=== PATIENT | male | born 1970 | race Caucasian/White ===

== ENCOUNTER 2020-03-30 09:49 | Inpatient (IN) | payer BC ==
[~2020-03-30] VITALS: Ht 180.3 cm; Wt 57.6 kg
--- NOTE | 2020-03-30 10:05 | NUR ---
ED Nurse Note: Pt ambulated to ED from home d/t heart palpitations going on and off for a week and generalized body weakness. Pt is AOx4, calm and cooperative, VSS, HR 83 at triage. Placed on bed and gown; hooked to supervisor of guidance and testing.
--- NOTE | 2020-03-30 10:13 | Emergency Room Report ---
History of Present Illness General Chief Complaint: Palpitations Source: Patient Present Illness HPI Patient is a 49-year-old male who presents after increased palpitations. Reports having intermittent episodes which his heart begins to race. States when this happened most recently he noticed his heart rate to be 150 via watch. He reports having some increased generalized weakness as well as recent increased nasal congestion. Denies any recent vomiting or diarrhea. Denies any prior history of anemia. Denies being a smoker. Had no prior history of cardiac disease. Denies any recent stimulant use. States he is recently been started on budesonide steroid.Reports having increased nasal congestion.Patient states that episode lasted approximately 10 minutes. Allergies: Coded Allergies: No Known Allergies (Unverified , 03/30/20) COVID-19 Screening Contact w/high risk pt: No Experienced COVID-19 symptoms?: No COVID-19 Testing performed AUTOMATION DESIGN ENGINEER: No Patient History Past Medical History: see triage record Reviewed Nursing Documentation: PMH: Agreed; PSxH: Agreed Nursing Documentation-PMH Past Medical History: No Stated History Review of Systems All Other Systems: negative except mentioned in HPI Physical Exam Vital Signs Date Time Temp Pulse Resp B/P (MAP) Pulse Ox O2 Delivery O2 Flow Rate FiO2 03/30/20 09:54 98.4 83 18 123/79 (94) 98 Room Air Sp02 EP Interpretation: reviewed, normal General Appearance: normal inspection, well appearing, no apparent distress, alert, GCS 15, non-toxic Head: atraumatic ENT: normal ENT inspection, hearing grossly normal, normal voice Neck: normal inspection, supple, no bony tend Respiratory: normal inspection, lungs clear, normal breath sounds, no respiratory distress, no retraction, no wheezing Cardiovascular #1: regular rate, rhythm, no edema Gastrointestinal: normal inspection, normal bowel sounds, non tender, soft, no guarding, no hernia Genitourinary: no CVA tenderness Musculoskeletal: normal inspection, back normal, normal range of motion Neurologic: alert, motor strength/tone normal, take down sorter III-XII nml as tested, oriented x3, responsive, speech normal, normal inspection Psychiatric: normal inspection, judgement/insight normal, mood/affect normal Medical Decision Making Diagnostic Impression: Primary Impression: Palpitations Additional Impression: Tachycardia ER Course Patient presented for palpitations intermittently. Differential diagnosis include was not limited to arrhythmia, orthostatic tachycardia, myocarditis among others. Because of complexity of patient's case laboratory tests and imaging studies were ordered. Patient had EKG interpreted by me with normal sinus rhythm without acute ST or T wave changes. Rhythm strip showed normal sinus rhythm with a rate of 74 without PVCs or ectopy.Patient apparently is having intermittent episodes of tachycardia. Dr. Noemi Campos was contacted for inpatient management. Labs Test 03/30/20 10:05 03/30/20 11:07 White Blood Count 6.3 K/UL (4.8-10.8) Red Blood Count 5.78 M/UL (4.70-6.10) Hemoglobin 18.1 G/DL (14.2-18.0) Hematocrit 53.5 % (42.0-52.0) Mean Corpuscular Volume 93 FL (80-99) Mean Corpuscular Hemoglobin 31.3 PG (27.0-31.0) Mean Corpuscular Hemoglobin Concent 33.8 G/DL (32.0-36.0) Red Cell Distribution Width 11.4 % (11.6-14.8) Platelet Count 224 K/UL (150-450) Mean Platelet Volume 6.4 FL (6.5-10.1) Neutrophils (%) (Auto) 70.4 % (45.0-75.0) Lymphocytes (%) (Auto) 20.1 % (20.0-45.0) Monocytes (%) (Auto) 8.2 % (1.0-10.0) Eosinophils (%) (Auto) 0.7 % (0.0-3.0) Basophils (%) (Auto) 0.6 % (0.0-2.0) Prothrombin Time 11.4 SEC (9.30-11.50) Prothromb Time International Ratio 1.0 (0.9-1.1) Activated Partial Thromboplast Time 26 SEC (23-33) D-Dimer < 0.19 mg/L FEU Sodium Level 141 MMOL/L (136-145) Potassium Level 4.0 MMOL/L (3.5-5.1) Chloride Level 104 MMOL/L (98-107) Carbon Dioxide Level 31 MMOL/L (21-32) Anion Gap 6 mmol/L (5-15) Blood Urea Nitrogen 16 mg/dL (7-18) Creatinine 1.0 MG/DL (0.55-1.30) Estimat Glomerular Filtration Rate > 60 mL/min (>60) Glucose Level 105 MG/DL (74-106) Calcium Level 9.5 MG/DL (8.5-10.1) Total Bilirubin 0.9 MG/DL (0.2-1.0) Aspartate Amino Transf (AST/SGOT) 23 U/L (15-37) Alanine Aminotransferase (ALT/SGPT) 36 U/L (12-78) Alkaline Phosphatase 57 U/L (46-116) Troponin I 0.000 ng/mL (0.000-0.056) Total Protein 8.0 G/DL (6.4-8.2) Albumin 4.7 G/DL (3.4-5.0) Globulin 3.3 g/dL Albumin/Globulin Ratio 1.4 (1.0-2.7) Thyroid Stimulating Hormone (TSH) 2.021 uiU/mL (0.358-3.740) Urine Color Pale yellow Urine Appearance Clear Urine pH 7 (4.5-8.0) Urine Specific [place] 1.005 (1.005-1.035) Urine Protein Negative (NEGATIVE) Urine Glucose (UA) Negative (NEGATIVE) Urine Ketones Negative (NEGATIVE) Urine Blood Negative (NEGATIVE) Urine Nitrite Negative (NEGATIVE) Urine Bilirubin Negative (NEGATIVE) Urine Urobilinogen Normal MG/DL (0.0-1.0) Urine Leukocyte Esterase Negative (NEGATIVE) Urine RBC 0 /HPF (0 - 0) Urine WBC 0 /HPF (0 - 0) Urine Squamous Epithelial Cells None /LPF (NONE/OCC) Urine Bacteria None /HPF (NONE) Urine Opiates Screen Negative (NEGATIVE) Urine Barbiturates Screen Negative (NEGATIVE) Phencyclidine (PCP) Screen Negative (NEGATIVE) Urine Amphetamines Screen Negative (NEGATIVE) Urine Benzodiazepines Screen Negative (NEGATIVE) Urine Cocaine Screen Negative (NEGATIVE) Urine Marijuana (THC) Screen Negative (NEGATIVE) EKG Diagnostic Results Rate: normal Rhythm: NSR ST Segments: no acute changes Last Vital Signs Date Time Temp Pulse Resp B/P (MAP) Pulse Ox O2 Delivery O2 Flow Rate FiO2 03/30/20 09:54 98.4 83 18 123/79 (94) 98 Room Air Status: improved Disposition: ADMITTED INPATIENT Condition: Stable Scripts No Active Prescriptions or Reported Meds Mamadou Jackson MD Mar 30, 2020 10:13
[2020-03-30 10:18] VITALS: BP 123/79
[2020-03-30 10:26] LABS: BASOPHILS % (AUTO) 0.6 % (0.0-2.0); EOSINOPHILS % (AUTO) 0.7 % (0.0-3.0); HEMATOCRIT 53.5 % (42.0-52.0); LYMPHOCYTES % (AUTO) 20.1 % (20.0-45.0); MEAN CORPUSCULAR VOLUME 93 FL (80-99); MONOCYTES % (AUTO) 8.2 % (1.0-10.0); NEUTROPHILS % (AUTO) 70.4 % (45.0-75.0); PLATELET COUNT 224 K/UL (150-450); RED BLOOD COUNT 5.78 M/UL (4.70-6.10); RED CELL DISTRIBUTION WIDTH 11.4 % (11.6-14.8); WHITE BLOOD COUNT 6.3 K/UL (4.8-10.8)
--- NOTE | 2020-03-30 10:27 | NUR ---
ED Nurse Note: pt unable to provide urine at this time.
[2020-03-30 10:34] LABS: HEMOGLOBIN 18.1 G/DL (14.2-18.0)
[2020-03-30 10:38] LABS: ANION GAP 6 mmol/L (5-15); BLOOD UREA NITROGEN 16 mg/dL (7-18); CALCIUM 9.5 MG/DL (8.5-10.1); CARBON DIOXIDE 31 MMOL/L (21-32); CHLORIDE 104 MMOL/L (98-107); SODIUM 141 MMOL/L (136-145)
--- NOTE | 2020-03-30 10:40 | NUR ---
ED Nurse Note: x-ray done.
[2020-03-30 10:42] LABS: PARTIAL THROMBOPLASTIN TIME 26 SEC (23-33)
[2020-03-30 10:50] LABS: ALANINE AMINOTRANSFERASE 36 U/L (12-78); ALBUMIN 4.7 G/DL (3.4-5.0); ALBUMIN/GLOBULIN RATIO 1.4 (1.0-2.7); ALKALINE PHOSPHATASE 57 U/L (46-116); ASPARTATE AMINO TRANSFERASE 23 U/L (15-37); BILIRUBIN,TOTAL 0.9 MG/DL (0.2-1.0)
--- NOTE | 2020-03-30 11:10 | NUR ---
ED Nurse Note: urine collected, sent to labs.
[2020-03-30 11:28] LABS: APPEARANCE,URINE CLEAR; BILIRUBIN, URINE NEGATIVE (NEGATIVE); COLOR,URINE PALE YELLOW; GLUCOSE, URINE (UA) NEGATIVE (NEGATIVE); KETONES,URINE NEGATIVE (NEGATIVE); LEUKOCYTE ESTERASE ,URINE NEGATIVE (NEGATIVE); NITRITE,URINE NEGATIVE (NEGATIVE); PH,URINE 7 (4.5-8.0); PROTEIN,URINE NEGATIVE (NEGATIVE); UROBILINOGEN,URINE NORMAL MG/DL (0.0-1.0)
--- NOTE | 2020-03-30 11:55 | NUR ---
ED Nurse Note: Patient resting in bed with eyes closed. No facial grimacing or guarding noted.
[2020-03-30 11:56] VITALS: BP 110/71
--- NOTE | 2020-03-30 12:26 | NUR ---
ED Nurse Note: Dr. Loving at bedside.
--- NOTE | 2020-03-30 12:37 | Cardiac Electrophysiology PN ---
Subjective Subjective Seen in ER. Dictated [id number] Objective Last 24 Hour Vital Signs Date Time Temp Pulse Resp B/P (MAP) Pulse Ox O2 Delivery O2 Flow Rate FiO2 03/30/20 11:56 71 14 110/71 99 Room Air 03/30/20 10:18 98.4 18 123/79 98 Room Air 03/30/20 09:54 98.4 83 18 123/79 (94) 98 Room Air Laboratory Tests Test 03/30/20 10:05 03/30/20 11:07 White Blood Count 6.3 K/UL (4.8-10.8) Red Blood Count 5.78 M/UL (4.70-6.10) Hemoglobin 18.1 G/DL (14.2-18.0) *H Hematocrit 53.5 % (42.0-52.0) H Mean Corpuscular Volume 93 FL (80-99) Mean Corpuscular Hemoglobin 31.3 PG (27.0-31.0) H Mean Corpuscular Hemoglobin Concent 33.8 G/DL (32.0-36.0) Red Cell Distribution Width 11.4 % (11.6-14.8) L Platelet Count 224 K/UL (150-450) Mean Platelet Volume 6.4 FL (6.5-10.1) L Neutrophils (%) (Auto) 70.4 % (45.0-75.0) Lymphocytes (%) (Auto) 20.1 % (20.0-45.0) Monocytes (%) (Auto) 8.2 % (1.0-10.0) Eosinophils (%) (Auto) 0.7 % (0.0-3.0) Basophils (%) (Auto) 0.6 % (0.0-2.0) Prothrombin Time 11.4 SEC (9.30-11.50) Prothromb Time International Ratio 1.0 (0.9-1.1) Activated Partial Thromboplast Time 26 SEC (23-33) D-Dimer < 0.19 mg/L FEU Sodium Level 141 MMOL/L (136-145) Potassium Level 4.0 MMOL/L (3.5-5.1) Chloride Level 104 MMOL/L (98-107) Carbon Dioxide Level 31 MMOL/L (21-32) Anion Gap 6 mmol/L (5-15) Blood Urea Nitrogen 16 mg/dL (7-18) Creatinine 1.0 MG/DL (0.55-1.30) Estimat Glomerular Filtration Rate > 60 mL/min (>60) Glucose Level 105 MG/DL (74-106) Calcium Level 9.5 MG/DL (8.5-10.1) Total Bilirubin 0.9 MG/DL (0.2-1.0) Aspartate Amino Transf (AST/SGOT) 23 U/L (15-37) Alanine Aminotransferase (ALT/SGPT) 36 U/L (12-78) Alkaline Phosphatase 57 U/L (46-116) Troponin I 0.000 ng/mL (0.000-0.056) Total Protein 8.0 G/DL (6.4-8.2) Albumin 4.7 G/DL (3.4-5.0) Globulin 3.3 g/dL Albumin/Globulin Ratio 1.4 (1.0-2.7) Thyroid Stimulating Hormone (TSH) 2.021 uiU/mL (0.358-3.740) Urine Color Pale yellow Urine Appearance Clear Urine pH 7 (4.5-8.0) Urine Specific [place] 1.005 (1.005-1.035) Urine Protein Negative (NEGATIVE) Urine Glucose (UA) Negative (NEGATIVE) Urine Ketones Negative (NEGATIVE) Urine Blood Negative (NEGATIVE) Urine Nitrite Negative (NEGATIVE) Urine Bilirubin Negative (NEGATIVE) Urine Urobilinogen Normal MG/DL (0.0-1.0) Urine Leukocyte Esterase Negative (NEGATIVE) Urine RBC 0 /HPF (0 - 0) Urine WBC 0 /HPF (0 - 0) Urine Squamous Epithelial Cells None /LPF (NONE/OCC) Urine Bacteria None /HPF (NONE) Urine Opiates Screen Negative (NEGATIVE) Urine Barbiturates Screen Negative (NEGATIVE) Phencyclidine (PCP) Screen Negative (NEGATIVE) Urine Amphetamines Screen Negative (NEGATIVE) Urine Benzodiazepines Screen Negative (NEGATIVE) Urine Cocaine Screen Negative (NEGATIVE) Urine Marijuana (THC) Screen Negative (NEGATIVE) Taurus Leigh MD Mar 30, 2020 12:37
--- NOTE | 2020-03-30 13:30 | NUR ---
ED Nurse Note: green top sent to labs for second troponin.
--- NOTE | 2020-03-30 13:30 | Diagnostic Imaging Report ---
Indication: Chest pain Technique: One view of the chest Comparison: none Findings: Azygos lobe and fissure-normal anatomic variant-incidentally noted. Lungs and pleural spaces are clear. The heart size is normal Impression: Negative
--- NOTE | 2020-03-30 14:02 | NUR ---
ED Nurse Note: Report given to CECY Dixon in telemetry unit for continuity of care.
--- NOTE | 2020-03-30 14:15 | NUR ---
TRANSFER TO TELEMETRY UNIT: Patient transferred to Telemetry as ordered, per Dr. Powell. Report given to CECY Dixon. Belongings and medications given to receiving nurse. Family and or S/O informed of transfer.
[2020-03-30 14:20] VITALS: BP 122/74
--- NOTE | 2020-03-30 14:20 | NUR ---
NURSE NOTES: Patient arrived to tele from ER via gurney, received report from Geri/RN. Patient alert and oriented X4. No distress or SOB noted. Able to make needs known. Patient denied any type of pain at this time. IV on right AC 20G, patent and clean, saline locked. Belongings check list done. surveillance monitor in place. Oriented to room, TV, visiting hours. Call light within reach, encourage to use call light when needed. Bed in lowest position and locked. Assessed skin and intact. Will continue to monitor.
--- NOTE | 2020-03-30 15:15 | Consultation ---
DATE OF CONSULTATION: 03/30/2020 CARDIOLOGY CONSULTATION CONSULTING PHYSICIAN: Taurus Leigh MD. REASON FOR CONSULTATION: Recurrent palpitation. HISTORY OF PRESENT ILLNESS: Patient is a 49-year-old gentleman with history of recurrent palpitation for 3 years. Patient's last hospitalization for palpitation was in May of last year at [facility] when he was seen in the ER and had a CT of the chest and was discharged home. Patient presented to the emergency room with intermittent episodes of palpitation and rapid heart rate that was recorded based on his Apple watch. His heart rate was at 150 beats per minute. He has nice tracings on the graft on his cellphone that shows his heart rates only jumps from 80 to 90 to 150s and then comes back suddenly down. Patient came to the emergency room for further evaluation and management. Patient denies any prior myocardial infarction, coronary artery disease, or congestive heart failure. REVIEW OF SYSTEMS: Thoroughly performed and was negative other than what was mentioned in the history of present illness. PAST MEDICAL HISTORY: Includes of palpitation. FAMILY HISTORY: Noncontributory. SOCIAL HISTORY: He lives at home. He works on the computer most of the day and does not smoke or drink alcohol or use any drugs. PHYSICAL EXAMINATION: VITAL SIGNS: Show blood pressure of 110/71, pulse is 70, respirations 18, and he is afebrile. HEAD AND NECK: Showed no JVD or carotid bruits. LUNGS: Clear. CARDIOVASCULAR: Regular S1 and S2 with no gallop or murmur. ABDOMEN: Soft. EXTREMITIES: No pitting edema. LABORATORY AND DIAGNOSTIC DATA: His EKG show sinus rhythm with no acute ST-T wave abnormalities. His labs show white count of 8.3, hemoglobin of 18.1, hematocrit 53.5, platelet count of 224. Sodium 141, potassium 4.0, BUN of 16, creatinine , and glucose of 105. His first troponin is negative. His urine toxicology was negative and urinalysis was negative. ASSESSMENT AND PLAN: 1. Recurrent episodes of palpitation documented to be due to tachycardia with heart rate up to 150s. I do not have the exact tracing of the tachycardia. It could be SVT or VTE. We will watch the patient on telemetry. Completely rule out TX protocol. Get the thyroid function tests and get an echocardiogram for further evaluation. 2. Elevated hemoglobin of more than 18. Patient denies any COPD or smoking. Thank you very much, Dr. Powell, for allowing me to participate in the care of this patient. Please do not hesitate to contact me for any questions regarding my evaluation. Taurus Leigh M.D. DR: ELIZA JOB#: [id number] CC:
[2020-03-30 16:00] VITALS: BP 122/75
--- NOTE | 2020-03-30 16:03 | NUR ---
NURSE NOTES: Patient Hgb is 18.1, Dr Powell is aware no new orders at this time.
--- NOTE | 2020-03-30 19:35 | NUR ---
NURSE HAND-OFF REPORT: Important Events on Shift: New admission Patient Status: Stable Diet: Cardiac Pending Orders: None Pending Results/Labs:N Pending MD notification: N Latest Vital Signs: Temperature 96.6 , Pulse 62 , B/P 122 /75 , Respiratory Rate 18 , O2 SAT 98 , Room Air, O2 Flow Rate . Vital Sign Comment: Stable EKG Rhythm: Sinus Rhythm Rhythm change?: N MD Notified?: - MD Response: Latest Matos Fall Score: 20 Fall Risk: Low Risk Safety Measures: Call light Within Reach, Bed Alarm Zone 1, Side Rails Side Rails x2, Bed position Low and Locked. Fall Precautions: Patient Fall Education Report given to Megan/CECY.
--- NOTE | 2020-03-30 19:36 | NUR ---
NURSE NOTES: Received report from CECY Rolon. Patient is awake on bed, alert and oriented x 4. On Cardiac diet, instructed and amenable. hall monitor is in place, shows sinus rhythm and no chest pain reported. On room air with no SOB complaints. IV site is on right AC G-20 saline lock that is patent and intact. Safety measures are in place, bed in lowest and locked position, side rails up x 2. Call light button and bedside table within reach. Instructed to call for any assistance needed. Will continue plan of care.
[2020-03-30 20:00] VITALS: BP 97/59
--- NOTE | 2020-03-30 21:45 | Consultation ---
DATE OF CONSULTATION: 03/30/2020 PULMONARY CONSULTATION CONSULTING PHYSICIAN: Anthony Garza MD HISTORY OF PRESENT ILLNESS: This is a 49-year-old male with a history of palpitations. He presented to the hospital with palpitations again. He noted that his heart rate is more than 150. He was seen by Cardiology and admitted to the hospital. I was concerned he may have SVT or VT. The patient at this time reports he is feeling better. PAST MEDICAL HISTORY: Palpitations only. PAST SURGICAL HISTORY: None. SOCIAL HISTORY: Lives at home with family. He denies any alcohol or substance abuse. REVIEW OF SYSTEMS: Denies any headaches, hematemesis, melena, or hematochezia. PHYSICAL EXAMINATION: GENERAL: A 49-year-old male. HEENT: Unremarkable. CHEST: Clear breath sounds bilaterally. ABDOMEN: Soft. EXTREMITIES: There is no edema. VITAL SIGNS: Blood pressure 100/70, heart rate 84, respirations . He is afebrile. LABORATORY DATA: Lab testing shows normal CBC and BMP. Hemoglobin 18.1. Chemistries are normal. Coags negative. Toxicology is negative. Urinalysis is negative. Coags negative. SARS COVID-19 testing is also negative. X-ray chest was obtained, which shows clear hines bilaterally. IMPRESSION: 1. SVT versus V-tach. 2. No active respiratory issues. DISCUSSION: At this point, the patient may be monitored out of ICU. I do not see an indication for any infusions such as amiodarone or lidocaine. Cardiology has been consulted. We will follow as needed. Anthony Garza M.D. DR: CURRY JOB#: [id number] CC:
[2020-03-31] VITALS: BP 101/57
--- NOTE | 2020-03-31 | NUR ---
NURSE NOTES: Patient had an episode of Sinus bradycardia, HR of 58. Upon assessment, patient was sleeping and I tried to wake him up, he denies any chest pain. DFr. Lu notifie, awaiting for call back.
[2020-03-31 04:00] VITALS: BP 110/57
[2020-03-31 04:30] LABS: BASOPHILS % (AUTO) 0.6 % (0.0-2.0); EOSINOPHILS % (AUTO) 1.6 % (0.0-3.0); HEMOGLOBIN 15.7 G/DL (14.2-18.0); LYMPHOCYTES % (AUTO) 32.4 % (20.0-45.0); MEAN CORPUSCULAR VOLUME 92 FL (80-99); MONOCYTES % (AUTO) 9.1 % (1.0-10.0); NEUTROPHILS % (AUTO) 56.3 % (45.0-75.0); PLATELET COUNT 183 K/UL (150-450)
--- NOTE | 2020-03-31 07:44 | NUR ---
NURSE NOTES: Received report from Megan/RN. Patient is in bed, lying semi-fowlers. On room air, no distress or SOB noted. IV on right AC 20G patent and clean, saline locked. Patient is alert and oriented X4, able to make needs known. Side rails up X2. Bed in the lowest position and locked. Call light within reach, encourage to use call light when needed. Will continue plan of care.
[2020-03-31 08:00] VITALS: BP 117/74
--- NOTE | 2020-03-31 10:47 | Pulmonology Progress Note ---
Subjective Interval Events: Comfortable Constitutional: Reports: no symptoms HEENT: Repors: no symptoms Respiratory: Reports: no symptoms Cardiovascular: Reports: no symptoms Gastrointestinal/Abdominal: Reports: no symptoms Allergies: Coded Allergies: No Known Allergies (Unverified , 03/30/20) Objective Last 24 Hour Vital Signs Date Time Temp Pulse Resp B/P (MAP) Pulse Ox O2 Delivery O2 Flow Rate FiO2 03/31/20 08:00 97.5 81 19 117/74 (88) 100 03/31/20 04:00 59 03/31/20 04:00 97.5 62 16 110/57 (74) 97 03/31/20 00:00 58 03/31/20 00:00 98.2 63 17 101/57 (72) 97 03/30/20 21:00 Room Air 03/30/20 20:00 79 03/30/20 20:00 98.1 68 16 97/59 (72) 97 03/30/20 16:00 62 03/30/20 16:00 96.6 59 18 122/75 (91) 98 03/30/20 14:20 Room Air 03/30/20 14:20 97.5 18 122/74 (90) 97 03/30/20 14:15 98.4 81 16 115/74 100 Room Air 03/30/20 11:56 71 14 110/71 99 Room Air Intake and Output 03/30/20 03/31/20 19:00 07:00 Intake Total 480 ml 480 ml Balance 480 ml 480 ml Intake Oral 480 ml 480 ml # Voids 1 3 # Bowel Movements 1 1 General Appearance: no acute distress HEENT: normocephalic Respiratory: chest wall non-tender, lungs clear Cardiovascular: normal rate Abdomen: normal bowel sounds Microbiology Date/Time Source Procedure Growth Status 03/30/20 10:05 Nasopharynx SARS-CoV-2 RdRp Gene Assay - Final Complete Laboratory Tests 03/30/20 11:07: Urine Color Pale yellow, Urine Appearance Clear, Urine pH 7, Urine Specific [place] 1.005, Urine Protein Negative, Urine Glucose (UA) Negative, Urine Ketones Negative, Urine Blood Negative, Urine Nitrite Negative, Urine Bilirubin Negative, Urine Urobilinogen Normal, Urine Leukocyte Esterase Negative, Urine RBC 0, Urine WBC 0, Urine Squamous Epithelial Cells None, Urine Bacteria None, Urine Opiates Screen Negative, Urine Barbiturates Screen Negative, Phencyclidine (PCP) Screen Negative, Urine Amphetamines Screen Negative, Urine Benzodiazepines Screen Negative, Urine Cocaine Screen Negative, Urine Marijuana (THC) Screen Negative 03/30/20 13:22: Troponin I 0.000 03/30/20 19:00: Troponin I 0.007, D-Dimer < 0.19 03/31/20 02:45: Troponin I 0.000, White Blood Count 7.0, Red Blood Count 5.00, Hemoglobin 15.7, Hematocrit 46.0, Mean Corpuscular Volume 92, Mean Corpuscular Hemoglobin 31.5H, Mean Corpuscular Hemoglobin Concent 34.2, Red Cell Distribution Width 11.0L, Platelet Count 183, Mean Platelet Volume 6.1L, Neutrophils (%) (Auto) 56.3, Lymphocytes (%) (Auto) 32.4, Monocytes (%) (Auto) 9.1, Eosinophils (%) (Auto) 1.6, Basophils (%) (Auto) 0.6, Thyroid Stimulating Hormone (TSH) 1.560, Free Thyroxine 1.18 Current Medications Medications (Trade) Dose Ordered Sig/Chad Route PRN Reason Start Time Stop Time Status Last Admin Dose Admin Acetaminophen (Tylenol) 650 mg Q6H PRN ORAL pain/fever 100.5 03/30/20 15:55 04/29/20 15:54 Assessment/Plan Assessment/Plan IMPRESSION: 1. SVT versus V-tach. 2. No active respiratory issues. DISCUSSION: I will follow as needed. Cardiology followup pending Maritza Kaufman Omar Syed MD Mar 31, 2020 10:47
--- NOTE | 2020-03-31 11:20 | NUR ---
RD ASSESSMENT & RECOMMENDATIONS SEE CARE ACTIVITY FOR COMPLETE ASSESSMENT DAILY ESTIMATED NEEDS: Needs based on Underweight 58.3kg 30-35 kcals/kg 6305-9903 total kcals 1-1.2 g protein/kg 58-70 g total protein 25-30 mL/kg 5581-4661 total fluid mLs NUTRITION DIAGNOSIS: Increased kcal and pro needs r/t underweight status as evidenced by BMI underweight per guidelines, pt is 75% of ideal body weight w/ generalized mild to moderate wasting CURRENT DIET: Cardiac PO DIET RECOMMENDATIONS: LOW NA diet, no caffeine ADDITIONAL RECOMMENDATIONS: 1) Obtain daily standing weights 2) Provide snacks in b/w meals 3) Ensure qdaily
[2020-03-31 12:00] VITALS: BP 113/68
--- NOTE | 2020-03-31 14:27 | Cardiac Electrophysiology PN ---
Assessment/Plan Assessment/Plan ASSESSMENT AND PLAN: 1. Recurrent episodes of palpitation documented to be due to tachycardia with heart rate up to 150s. I do not have the exact tracing of the tachycardia. It could be SVT or VTE. Completely ruled out for MD protocol. Echocardiogram Nl EF. Not hyperthyroid. Need Ziopatch as ouit patient 2. Elevated hemoglobin of more than 18. Improved to 15 today. Likely due to dehydration. Subjective Subjective Had episodes of letitia in 40s and tachy in 130s but all in SR. No SVT or VT documented. Objective Last 24 Hour Vital Signs Date Time Temp Pulse Resp B/P (MAP) Pulse Ox O2 Delivery O2 Flow Rate FiO2 03/31/20 12:00 86 03/31/20 12:00 97.7 75 21 113/68 (83) 98 03/31/20 09:00 Room Air 03/31/20 08:00 97.5 81 19 117/74 (88) 100 03/31/20 08:00 77 03/31/20 04:00 59 03/31/20 04:00 97.5 62 16 110/57 (74) 97 03/31/20 00:00 58 03/31/20 00:00 98.2 63 17 101/57 (72) 97 03/30/20 21:00 Room Air 03/30/20 20:00 79 03/30/20 20:00 98.1 68 16 97/59 (72) 97 03/30/20 16:00 62 03/30/20 16:00 96.6 59 18 122/75 (91) 98 Intake and Output 03/30/20 03/31/20 19:00 07:00 Intake Total 480 ml 480 ml Balance 480 ml 480 ml Intake Oral 480 ml 480 ml # Voids 1 3 # Bowel Movements 1 1 Laboratory Tests Test 03/30/20 19:00 03/31/20 02:45 D-Dimer < 0.19 mg/L FEU Troponin I 0.007 ng/mL (0.000-0.056) 0.000 ng/mL (0.000-0.056) White Blood Count 7.0 K/UL (4.8-10.8) Red Blood Count 5.00 M/UL (4.70-6.10) Hemoglobin 15.7 G/DL (14.2-18.0) Hematocrit 46.0 % (42.0-52.0) Mean Corpuscular Volume 92 FL (80-99) Mean Corpuscular Hemoglobin 31.5 PG (27.0-31.0) H Mean Corpuscular Hemoglobin Concent 34.2 G/DL (32.0-36.0) Red Cell Distribution Width 11.0 % (11.6-14.8) L Platelet Count 183 K/UL (150-450) Mean Platelet Volume 6.1 FL (6.5-10.1) L Neutrophils (%) (Auto) 56.3 % (45.0-75.0) Lymphocytes (%) (Auto) 32.4 % (20.0-45.0) Monocytes (%) (Auto) 9.1 % (1.0-10.0) Eosinophils (%) (Auto) 1.6 % (0.0-3.0) Basophils (%) (Auto) 0.6 % (0.0-2.0) Thyroid Stimulating Hormone (TSH) 1.560 uiU/mL (0.358-3.740) Free Thyroxine 1.18 NG/DL (0.76-1.46) Microbiology Date/Time Source Procedure Growth Status 03/30/20 10:05 Nasopharynx SARS-CoV-2 RdRp Gene Assay - Final Complete Objective HEAD AND NECK: No JVD or carotid bruits. LUNGS: Clear. CARDIOVASCULAR: Regular S1 and S2 with no gallop or murmur. ABDOMEN: Soft. EXTREMITIES: No pitting edema. Taurus Leigh MD Mar 31, 2020 14:27
--- NOTE | 2020-03-31 15:04 | NUR ---
CASE MANAGEMENT:REVIEW 49 YR OLD MALE PRESENTED TO ER CC; PALPITATIONS ON/OFF X1 WEEK AND GENERALIZED WEAKNESS SI: PALPITATIONS. TACHYCARDIA 98.4 83 18 97/59 98% ON RA IS: CHEST XRAY COVID SWAB URINE TOX SCREEN : TO TELEMETRY PLAN: SERIAL TROPONIN 2DECHO CARDIAC AND PULMONARY CONSULT CALLED
--- NOTE | 2020-03-31 15:18 | NUR ---
MD NOTIFICATION MESSAGE LEFT FOR DR WRIGHT AND DR OCHOA REGARDING INPATIENT vs OBSERVATION vs DISCHARGE
[2020-03-31] MEDS ORDERED: BUDESONIDE0.5 GM NASAL (15:37)
[2020-03-31] MEDS ORDERED: FAMOTIDINE20 MG ORAL (15:37)
[2020-03-31] MEDS ORDERED: MULTIVITAMINS1 EAC2 ORAL (15:37)
--- NOTE | 2020-03-31 15:38 | NUR ---
INSURANCE FAXED CLINCALS AND REVIEW TO [facility] F: [phone] REF #[id number]
[2020-03-31] MEDS ORDERED: RHINOCORT NASAL (15:40)
[2020-03-31 16:00] VITALS: BP 112/72
--- NOTE | 2020-03-31 19:05 | NUR ---
NURSE HAND-OFF REPORT: Important Events on Shift:N Patient Status: Stable Diet: Cardiac Pending Orders: N Pending Results/Labs:N Pending MD notification:N Latest Vital Signs: Temperature 98.1 , Pulse 67 , B/P 112 /72 , Respiratory Rate 20 , O2 SAT 97 , Room Air, O2 Flow Rate . Vital Sign Comment: Stable EKG Rhythm: Sinus Rhythm Rhythm change?: N MD Notified?: N MD Response: Latest Matos Fall Score: 20 Fall Risk: Low Risk Safety Measures: Call light Within Reach, Bed Alarm Zone 1, Side Rails Side Rails x2, Bed position Low and Locked. Fall Precautions: Patient Fall Education Report given to Nat Rivas/CECY
--- NOTE | 2020-03-31 19:33 | NUR ---
NURSE NOTES: Received report from CECY Rolon. Patient is awake, alert and oriented x 4. On room air, sating 98%. On cardiac diet, instructed and amenable. sales order specialist is in place, shows sinus rhythm with no chest pain reported. Patient is ambulatory. Safety measures are in place, bed in lowest and locked position. Side rails up x 2. Call light button and bedside table within reach, instructed to call for any assistance needed. Will continue plan of care.
[2020-03-31 20:00] VITALS: BP 114/71
--- NOTE | 2020-03-31 23:15 | History and Physical Report ---
DATE OF ADMISSION: 03/30/2020 HISTORY OF PRESENT ILLNESS: The patient was admitted because he had shooting pain chest and shortness of breath. The patient does have palpitations while sitting, heart rate 150. The patient admitted for palpitation. The patient also complains of nasal congestion and weakness. He states that " I feel weak" just sitting in the bed. The patient's EKG showed normal sinus rhythm. The patient admitted for tachycardia, shortness of breath. PAST MEDICAL HISTORY: GERD. PAST SURGICAL HISTORY: Appendectomy. MEDICATIONS: None. FAMILY HISTORY: Noncontributory. SOCIAL HISTORY: He has history of smoking, history of marijuana. No history of drug abuse. REVIEW OF SYSTEMS: HEENT: Denies headaches. RESPIRATORY: Reports shortness of breath. Denies cough. EXTREMITIES: Denies pain. GASTROINTESTINAL: Denies nausea, vomiting, or diarrhea. CENTRAL NERVOUS SYSTEM: Reports generalized weakness. PHYSICAL EXAMINATION: VITAL SIGNS: Temperature is 98.2, pulse is 63, blood pressure is 101/57. HEENT: PERRLA. NECK: Supple. No lymphadenopathy. CHEST: Clear to auscultation. CARDIOVASCULAR: Bradycardic. No murmur. GASTROINTESTINAL: Soft, nontender, nondistended. No organomegaly. EXTREMITIES:: No edema. He is able to moves all four extremities. Dorsal pedal pulse are present. LABORATORY DATA: WBC of 6.3, hemoglobin of 18.1, platelets 224. Troponin is negative. EKG shows normal sinus rhythm. ASSESSMENT AND PLAN: Palpitation, tachycardia, shortness of breath. I have consulted Dr. Leigh, Dr. Jet Vora, Dr. Anthony Garza to help with diagnoses of the above-mentioned abnormalities and symptoms. We will see why patient has palpitation and why the patient is short of breath. Antibiotics if any per Dr. Jet Vora. Noemi Powell M.D. DR: Chandana JOB#: [id number] CC:
[2020-04-01] VITALS: BP 111/75
--- NOTE | 2020-04-01 03:25 | NUR ---
NURSE NOTES: Received report from CECY Guzman. Pt in bed asleep. No resp distress noted. Continue on cardiac monitoring. IV 22G right antecubital saline locked. Bed in low position & locked. Side rails up x2. Call light with in reach. Will continue plan of care.
--- NOTE | 2020-04-01 03:27 | NUR ---
NURSE HAND-OFF REPORT: Important Events on Shift: None Patient Status: asleep, stable, no complaints made at this time Diet: Cardiac Diet Pending Orders: none Pending Results/Labs: none Pending MD notification: none Latest Vital Signs: Temperature 97.9 , Pulse 54 , B/P 111 /75 , Respiratory Rate 17 , O2 SAT 95 , Room Air, O2 Flow Rate . Vital Sign Comment: none EKG Rhythm: Sinus Bradycardia Rhythm change?: Y Notified?: Vida -Dr. Lu MARTINEZ Response: Message left await call Latest Matos Fall Score: 20 Fall Risk: Low Risk Safety Measures: Call light Within Reach, Bed Alarm Zone 1, Side Rails Side Rails x2, Bed position Low and Locked. Fall Precautions: Patient Fall Education Report given to CECY Pina.
[2020-04-01 04:00] VITALS: BP 106/66
--- NOTE | 2020-04-01 07:45 | NUR ---
NURSE NOTES: Received report from CECY Luna. Observed pt sleeping, no s/sx of acute distress, breathing even and unlabored in RA. IV site patent and asymptomatic. Bed on lowest position, call light within reach. Will continue plan of care.
--- NOTE | 2020-04-01 07:48 | NUR ---
NURSE HAND-OFF REPORT: Important Events on Shift:Pt had episode of sinus bradycardia Patient Status: stable Diet: cardiac Pending Orders:None Pending Results/Labs:None Pending MD notification: None Latest Vital Signs: Temperature 97.7 , Pulse 66 , B/P 106 /66 , Respiratory Rate 18 , O2 SAT 97 , Room Air, O2 Flow Rate . Vital Sign Comment: none EKG Rhythm: Sinus Bradycardia Rhythm change?: N MD Notified?: N -Dr. Lu MARTINEZ Response: Message left await call Latest Matos Fall Score: 20 Fall Risk: Low Risk Safety Measures: Call light Within Reach, Bed Alarm Zone 1, Side Rails Side Rails x2, Bed position Low and Locked. Fall Precautions: Patient Fall Education Report given to CECY Rhodes.
[2020-04-01 08:00] VITALS: BP 109/60
--- NOTE | 2020-04-01 09:00 | NUR ---
NURSE NOTES: Pt was complaining of palpitations. EKG performed and shows NSR. Dr Leigh made aware. MD came to see pt and instructed him to see MD at the medical office next week for a checkup.
--- NOTE | 2020-04-01 09:40 | Cardiac Electrophysiology PN ---
Assessment/Plan Assessment/Plan 1. Recurrent palpitation documented to be due to tachycardia with heart rate up to 150s. I do not have the exact tracing of the tachycardia. It could be SVT or VT. Completely ruled out for [place] protocol. Echocardiogram Nl EF. Not hyperthyroid. Need Ziopatch as out patient. Can't add Betablocker as HR drops to 40s at night 2. Elevated hemoglobin of more than 18. Improved to 15 today. Likely due to dehydration. DW RN OK to DC Subjective Subjective Had episodes of letitia in 40s and tachy in 130s. No SVT or VT documented. No CP or SOB. RN at bedside Objective Last 24 Hour Vital Signs Date Time Temp Pulse Resp B/P (MAP) Pulse Ox O2 Delivery O2 Flow Rate FiO2 04/01/20 08:00 97.7 69 18 109/60 (76) 99 04/01/20 04:00 97.7 66 18 106/66 (79) 97 04/01/20 04:00 51 04/01/20 00:00 54 04/01/20 00:00 97.9 63 17 111/75 (87) 95 03/31/20 21:00 Room Air 03/31/20 20:00 65 03/31/20 20:00 97.7 61 18 114/71 (85) 96 03/31/20 16:00 98.1 68 20 112/72 (85) 97 03/31/20 16:00 67 03/31/20 12:00 86 03/31/20 12:00 97.7 75 21 113/68 (83) 98 Intake and Output 03/31/20 04/01/20 19:00 07:00 Intake Total 140 ml 300 ml Output Total 1200 ml 1100 ml Balance -1060 ml -800 ml Intake Oral 140 ml 300 ml Output Urine Total 1200 ml 1100 ml # Voids 3 3 Microbiology Date/Time Source Procedure Growth Status 03/30/20 10:05 Nasopharynx SARS-CoV-2 RdRp Gene Assay - Final Complete Objective HEAD AND NECK: No JVD or carotid bruits. LUNGS: Clear. CARDIOVASCULAR: Regular S1 and S2 with no gallop or murmur. ABDOMEN: Soft. EXTREMITIES: No pitting edema. Taurus Leigh MD Apr 01, 2020 09:40
--- NOTE | 2020-04-01 12:30 | NUR ---
NURSE NOTES: Pt left the unit in stable condition. Per pt, he drove for himself going here and he is able to safely drive back home today. No s/sx of acute distress noted. DC paperworks explained with the pt, instructed pt to see Dr Leigh and his PCP within one week, pt verbalized understanding. Per pt, he already made his MD appts for next week. IV, ID band and telemonitor removed. All belongings checked. Pt left the unit wearing face mask.
--- NOTE | 2020-04-01 15:03 | NUR ---
CASE MANAGEMENT:REVIEW 04/01/20 DISCHARGED HOME
--- NOTE | 2020-04-01 15:06 | NUR ---
INSURANCE DISCHARGE NOTIFICATION [facility] F: [phone] REF #[id number]
--- NOTE | 2020-04-05 15:10 | Discharge Summary ---
Discharge Summary Discharge Summary _ DATE OF ADMISSION: 03/30/2020 DATE OF DISCHARGE: [] 04/01/2020 DISCHARGED BY: Dr. Powell REASON FOR ADMISSION: 49 years old male with no significant past medical history presented with palpitations. Patient reported intermittent episodes with feeling that his heart was racing . He noticed via his watch that his heart rate was over 150 . He reported increased weakness as well as increased nasal congestion. No vomiting or diarrhea. No fever or chills . No prior history of anemia . He denies smoking , no use of illicit street drugs, including stimulants . No prior history of cardiac disease. Patient recently started on budesonide steroid due to nasal congestion. Upon evaluation vital signs were stable Laboratory work-up revealed no leukocytosis, stable hemoglobin ,hematocrit ,and platelet count. Stable electrolytes and renal parameters Glucose 105 Troponin negative . EKG revealed sinus rhythm no acute ischemic changes . Urinalysis revealed no evidence of urinary tract infection . Urine toxicology screen was negative. Chest x-ray demonstrated no acute cardiopulmonary pathology. Patient admitted due to palpitations. CONSULTANTS: lab coordinator Dr. Ba pulmonary Dr. Garza [facility] COURSE: Patient admitted to telemetry floor. Investment Sales Assistant followed. Serial troponin were negative, EKG revealed no acute ischemic changes. Patient was ruled out for acute [place]. TSH and free T4 were both within normal limits. Echocardiogram demonstrated preserved ejection fraction of 55%. No evidence of wall motion abnormality. Right ventricular systolic pressure of 38 consistent with mild pulmonary hypertension. Per lab coordinator, recurrent palpitation documented were due to tachycardia when heart rate was above 150. Patient will need a Ziopatch as outpatient to assess his rhythm SVT versus V. tach. Investment Sales Assistant was unable to start patient on beta-nicol , since his heart rate dropped to 40 at nighttime. Initially noted elevated hemoglobin of more than 18 , which improved with IV hydration, likely was due to dehydration Pulse oximetry remained stable on room air No signs of respiratory distress. Patient clinically stabilized and was ready for discharge home. Patient to follow-up with a lab coordinator as outpatient for Mark. FINAL DIAGNOSES: Palpitations likely due to tachycardia Supraventricular tachycardia versus ventricular tachycardia Elevated hemoglobin likely due to dehydration resolved DISCHARGE MEDICATIONS: See Medication Reconciliation list. DISCHARGE INSTRUCTIONS: Patient was discharged home. Follow-up with lab coordinator for Meredith shields I have been assigned to dictate discharge summary for this account. I was not involved in the patient's management. Toña Jaeger NP Apr 05, 2020 15:10
== END 2020-04-01 12:30 | disposition home or self-care (01) | DRG 310 ==
LOC: EMR 10:18 → 2E 11:03 → EDBEDREQ 11:10
DX: I47.1 Supraventricular tachycardia (principal); I47.2 Ventricular tachycardia; E86.0 Dehydration; K21.9 Gastro-esophageal reflux disease without esophagitis; Z87.891 Personal history of nicotine dependence
CPT/HCPCS: 36415; 71045; 80053; 80307; 81001; 84439; 84443; 84484; 85025; 85379; 85610; 85730; 93005; 93306; 99285; U0002